=== PATIENT | male | born 1965 | race African-American/Black ===

== ENCOUNTER 2016-04-26 16:30 | Emergency (ER) | payer OTHER ==
[2016-04-26 16:32] VITALS: BP 122/80; PULSE 68; RESP 15; TEMP 98.2; O2SAT 98
--- NOTE | 2016-04-26 19:14 | PD ---
HPI Chief Complaint: Laceration/Skin Injury Time Seen by Provider: 19:11 Travel History International Travel<30 days: No Contact w/Intl Traveler<30days: No Traveled to known affect area: No History of Present Illness HPI 51-year-old [id number] black male presents to emergency department with complaints of a laceration to his left hand. He states that he had accidentally cut himself with something in the trash as he was compacting the trash. He denies any numbness, tingling or weakness. Pain is mild. He has not had a tetanus shot over 5 years. 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.) Radiation Therapy: No Tetanus Vaccination: > 5 Years Past Surgical History Surgical History: No Previous Surgery Other Surgery: No Social History Alcohol Use: Yes (TWICE A MONTH) Tobacco Use: No Substance Use: No (COCAINE NONE X2 YEARS) Allergies-Medications (Allergen,Severity, Reaction): Coded Allergies: No Known Allergies (Verified , 04/26/16) Reported Meds & Prescriptions Reported Meds & Active Scripts Active No Active Prescriptions or Reported Medications Review of Systems Except as stated in HPI: all other systems reviewed are Neg Physical Exam Narrative GENERAL: This is a well-nourished, well-developed patient, in no apparent distress. SKIN: No rashes, ecchymoses or lesions. Warm and dry. HEAD: Atraumatic. Normocephalic. EYES: PERRL, EOMI, no discharge or injection. No scleral icterus. EARS: Clear NOSE: Nasal turbinates appear normal. THROAT: Mucosa pink and moist. Airway patent. NECK: Trachea midline. supple, moves head freely. LUNGS: Clear to auscultation. CV: Regular in rhythm. ABDOMEN: Soft nontender. EXT: No clubbing cyanosis or edema. Patient has a 3.5 cm laceration to the lateral aspect of the left thumb. No deep injury. Neurovascular intact. No tenderness joint injury. Full range of motion. Full strength. Data Data Last Documented VS Vital Signs Date Time Temp Pulse Resp B/P Pulse Ox O2 Delivery O2 Flow Rate FiO2 04/26/16 16:32 98.2 68 15 122/80 98 MDM Medical Decision Making Medical Screen Exam Complete: Yes Emergency Medical Condition: Yes Medical Record Reviewed: Yes Differential Diagnosis MDM: High Differential diagnoses: Fracture, sprain, strain, dislocation, contusion, neurovascular injury Narrative Course Patient's laceration is closed with sutures. Tetanus in position updated. Procedures Procedure Narrative LACERATION LOCATION: Left thumb LENGTH: 3.5 cm NUMBER OF STITCHES/ELÍAS: 6 REPAIR: The area of the laceration was prepped with Betadine and sterilely draped. The laceration was infiltrated with 1% lidocaine. The wound was copiously irrigated and explored without evidence of foreign body, tendon injury or neurovascular injury. The wound was closed using 5-0 proline. This was a simple single layer repair. A sterile dressing was applied. The patient was advised to keep the dressing clean and dry. Patient tolerated the procedure well. Diagnosis Primary Impression: Laceration of left thumb Patient Instructions: General Instructions Additional Instructions: Rest. Elevation. Keep clean and dry. Daily wound care with soap, water, Neosporin. Tylenol and Advil for pain. Sutures out in 14 days. Return to the ER for any problems. Med/Other Pt SpecificInfo: Wound Care Scripts No Active Prescriptions or Reported Meds Disposition: 01 DISCHARGE HOME Condition: Stable Jett Galicia Apr 26, 2016 19:14
[2016-04-26] MEDS ORDERED: TETANUS/DIPHTHERIA TOXOID ADULT 0.5 ML VIAL IM ONE (19:15)
== END 2016-04-26 19:48 | disposition home or self-care (01) ==
LOC: NEPB 16:30
DX: S61.012A Laceration without foreign body of left thumb without damage to nail, initial encounter (principal); W45.8XXA Other foreign body or object entering through skin, initial encounter; Y93.89 Activity, other specified; Z23 Encounter for immunization
CPT/HCPCS: 12002; 90471; 90714

== ENCOUNTER 2016-10-06 10:57 | Emergency (ER) | payer SELFPAY ==
[~2016-10-06] VITALS: Ht 185.4 cm; Wt 105.0 kg
[2016-10-06 10:59] VITALS: BP 122/76; PULSE 58; RESP 20; TEMP 98.4; O2SAT 100
--- NOTE | 2016-10-06 11:18 | PD ---
Physical Exam Time Seen by Provider: 11:15 Narrative 51yo M c/o swelling and pain to L testicle for a couple of weeks. + L groin pain. Denies hx of hernia. Denies penile drainage. John fever, vomiting. Patient seen in triage. Awaiting bed placement. VS reviewed. Data Data Last Documented VS Vital Signs Date Time Temp Pulse Resp B/P Pulse Ox O2 Delivery O2 Flow Rate FiO2 10/06/16 10:59 98.4 58 20 122/76 100 Room Air MDM Supervised Visit with TIM: No Scripts No Active Prescriptions or Reported Meds Shannon Talamantes Oct 06, 2016 11:18
--- NOTE | 2016-10-06 12:18 | RADRPT ---
EXAM DATE/TIME: 10/06/2016 11:40 [facility] COMPARISON: No previous studies available for comparison. INDICATIONS : Testicular pain. MEDICAL HISTORY : Respiratory disorders. Substance use. SURGICAL HISTORY : Hand surgery. ENCOUNTER: Initial ACUITY: 1 month PAIN SCORE: 8/10 LOCATION: Bilateral scrotum. MEASUREMENTS: RIGHT TESTICLE: 3.6 x 2.6 x 3.1cm LEFT TESTICLE: 3.9 x 4.2 x 2.4cm FINDINGS: RIGHT TESTICLE: Homogeneous echotexture without intra or extratesticular mass. Blood flow is symmetric and within no rmal limits. No hydrocele or varicocele. Tiny epididymal cyst. LEFT TESTICLE: Homogeneous echotexture without intra or extratesticular mass. Blood flow is symmetric and within no rmal limits. Minimal hydrocele fluid. Small varicocele.. Epididymis is within normal limits. SCROTUM: Within normal limits. CONCLUSION: No acute findings Titi Antoine MD on October 06, 2016 at 12:14 Board Certified Radiologist. This report was verified electronically.
[2016-10-06 13:41] LABS: BLOOD, URINE NEG (NEG); COMMENT (UR) CULT NOT INDICATED; CULTURE IF INDICATED CULT NOT INDICATED; GLUCOSE,URINE NEG (NEG); KETONE, URINE NEG (NEG); MUCUS URINE FEW /lpf (OCC); NITRITE,URINE NEG (NEG); URINE COLOR YELLOW (YELLW/STRAW)
--- NOTE | 2016-10-06 13:47 | PD ---
HPI Chief Complaint: Complaint Time Seen by Provider: 13:46 Travel History International Travel<30 days: No Contact w/Intl Traveler<30days: No Traveled to known affect area: No History of Present Illness HPI 51-year-old Afro-[place] male presents to the emergency department with left- sided groin pain extending into the testicle for approximately 2 months. Patient denies any specific injury. He denies fever, chills, or dysuria. He denies penile discharge. He is monogamous with 1 partner. He states it's been not worsening but not improving over the last month. He denies abdominal or flank pain. No obvious lumps or bumps although he felt the left testicle was larger than the right. He has no known drug allergies. [facility], [facility] Past Medical History Medical History: Denies Significant Hx Autoimmune Disease: No Blood Disorders: No Cancer: No Cardiovascular Problems: No Chemotherapy: No Diminished Hearing: No Endocrine: No Gastrointestinal Disorders: No Genitourinary: No Musculoskeletal: No Neurologic: No Psychiatric: No Respiratory: Yes (TB 2007. TOOK RIFAMPEN.) Radiation Therapy: No Past Surgical History Surgical History: No Previous Surgery Other Surgery: No Social History Alcohol Use: Yes (TWICE A MONTH) Tobacco Use: No Substance Use: No (COCAINE NONE X2 YEARS) Allergies-Medications (Allergen,Severity, Reaction): Coded Allergies: No Known Allergies (Verified , 10/06/16) Reported Meds & Prescriptions Reported Meds & Active Scripts Active No Active Prescriptions or Reported Medications Review of Systems Except as stated in HPI: all other systems reviewed are Neg General / Constitutional: No: Fever, Chills Eyes: No: Visual changes HENT: No: Headaches Cardiovascular: No: Chest Pain or Discomfort Respiratory: No: Shortness of Breath Gastrointestinal: No: Nausea, Vomiting, Diarrhea, Abdominal Pain Genitourinary: No: Urgency, Frequency, Dysuria, Pelvic Pain, Flank Pain, Discharge Musculoskeletal: No: Pain Skin: No Rash Neurologic: No: Weakness Psychiatric: No: Depression Endocrine: No: Polydipsia Hematologic/Lymphatic: No: Easy Bruising Physical Exam Narrative GENERAL: Patient appears in no acute distress. SKIN: Warm and dry. Normal color. Normal turgor. No rash. HEAD: Atraumatic. Normocephalic. EYES: Pupils equal and round. No scleral icterus. No injection or drainage. ENT: No nasal bleeding or discharge. Mucous membranes pink and moist. Pharynx is normal. Airway is patent. NECK: Trachea midline. Supple nontender. CARDIOVASCULAR: Regular rate and rhythm. RESPIRATORY: No accessory muscle use. Clear to auscultation. Breath sounds equal bilaterally. GASTROINTESTINAL: Abdomen soft, non-tender, nondistended. Hepatic and splenic margins not palpable. No flank tenderness. GENITAL: Genitalia appear normal. Mild tenderness with the left testicle and epididymis. No palpable hernia with Valsalva. Patient is tender along the inguinal canal, without palpable lymphadenopathy. MUSCULOSKELETAL: Extremities without clubbing, cyanosis, or edema. No obvious deformities. NEUROLOGICAL: Awake and alert. No obvious cranial nerve deficits. Motor grossly within normal limits. Five out of 5 muscle strength in the arms and legs. Normal speech. PSYCHIATRIC: Appropriate mood and affect; insight and judgment normal. Data Data Last Documented VS Vital Signs Date Time Temp Pulse Resp B/P Pulse Ox O2 Delivery O2 Flow Rate FiO2 10/06/16 12:28 18 10/06/16 10:59 98.4 58 122/76 100 Room Air Orders Us Testicles W Doppler (10/06/16 ) Urinalysis - C+S If Indicated (10/06/16 12:55) Gc And Chlamydia Pcr (10/06/16 12:55) Labs Laboratory Tests Test 10/06/16 13:11 Urine Color YELLOW Urine Turbidity CLEAR Urine pH 6.0 Urine Specific [place] 1.021 Urine Protein TRACE mg/dL Urine Glucose (UA) NEG mg/dL Urine Ketones NEG mg/dL Urine Occult Blood NEG Urine Nitrite NEG Urine Bilirubin NEG Urine Urobilinogen LESS THAN 2.0 MG/DL Urine Leukocyte Esterase NEG Urine RBC 1 /hpf Urine WBC LESS THAN 1 /hpf Urine Mucus FEW /lpf Microscopic Urinalysis Comment CULT NOT INDICATED MDM Medical Decision Making Medical Screen Exam Complete: Yes Emergency Medical Condition: Yes Differential Diagnosis Epididymitis. Prostatitis. Inguinal hernia. Groin strain. Narrative Course Patient is medically stable at time of exam. Ultrasound showed no significant findings other than a small varicocele on the left per radiologist. Urinalysis is normal without signs of infection. GC and chlamydia is pending. I feel the likelihood of an STD in this patient is very low considering his history and physical. I feel the patient's pain is muscle skeletal in nature. Patient was treated with ibuprofen 600 mg 4 times a day for the next. Patient is to follow-up with a local primary care physician or urologist if symptoms continue. Patient can return to emergency Department with worsening symptoms as needed. Diagnosis Primary Impression: Left groin pain Referrals: [facility] Primary Care Physician Patient Instructions: General Instructions, Groin Pain (ED) Additional Instructions: Ultrasound showed no significant findings other than a small varicocele on the left per radiologist. Urinalysis is normal without signs of infection. GC and chlamydia is pending. I feel the likelihood of an STD in this patient is very low considering his history and physical. I feel the patient's pain is muscle skeletal in nature. Patient was treated with ibuprofen 600 mg 4 times a day for the next. Patient is to follow-up with a local primary care physician or urologist if symptoms continue. Patient can return to emergency Department with worsening symptoms as needed. Med/Other Pt SpecificInfo: Prescription(s) given Scripts No Active Prescriptions or Reported Meds Disposition: 01 DISCHARGE HOME Condition: Stable [place] Oct 06, 2016 13:47
[2016-10-06] MEDS ORDERED: IBUP-232 PO (13:54)
[2016-10-06 14:06] VITALS: BP 120/82
[2016-10-06 16:28] LABS: CHLAMYDIA PCR NOT DETECTED (NOT DETECT); NEISSERIA PCR NOT DETECTED (NOT DETECT)
== END 2016-10-06 14:07 | disposition home or self-care (01) ==
LOC: NEPD 10:57
DX: R10.2 Pelvic and perineal pain (principal); Z86.11 Personal history of tuberculosis
CPT/HCPCS: 76870; 81001; 87491; 87591; 93975